=== PATIENT | female | born 1985 | race Caucasian/White ===

== ENCOUNTER → 2021-12-17 | Outpatient (CLI) | payer BC ==
[~2021-12-17] MED LIST: NO HOME MEDICATIONS
== END ==
LOC: MC.RAD 09:07
DX: N63.11 Unspecified lump in the right breast, upper outer quadrant (principal)

== ENCOUNTER → 2023-10-19 | Outpatient (CLI) | payer BC | LOC: MC.RAD 10:40 | DX: Z12.31 Encounter for screening mammogram for malignant neoplasm of breast (principal) ==